=== PATIENT | female | born 1990 ===

== ENCOUNTER 2024-04-29 14:04 | Outpatient (CLI) | payer BC, SELFPAY ==
--- NOTE | 2024-04-29 14:45 | CRLHL7_ITS ---
For Patients: As a result of the Century Cures Act, medical imaging exams and procedure reports are released immediately into your electronic medical record. You may view this report before your referring provider. If you have questions, please contact your health care provider. INDICATION: Left-sided submandibular swelling COMPARISON: None. TECHNIQUE: Focused sonographic evaluation of the reported region of clinical concern was performed at the left submandibular region utilizing carroll-scale and color Doppler imaging techniques. FINDINGS: Focused sonographic evaluation at the vicinity of the left submandibular gland demonstrates: Several abnormally enlarged and abnormally hyperemic lymph nodes measuring up to 1.3 centimeters in the short axis. There are also enlarged lymph nodes associated with the left cervical chain measuring up to at least 1.2 centimeters in the short axis. IMPRESSION: Focused sonographic evaluation at the vicinity of the left submandibular gland demonstrates several abnormally enlarged and abnormally hyperemic lymph nodes measuring up to 1.3 centimeters in the short axis. There are also enlarged lymph nodes associated with the left cervical chain measuring up to at least 1.2 centimeters in the short axis. Consider fine needle aspiration to further assess. Dictated by Vern Banegas MD @ 04/29/2024 3:37:48 PM (Electronically Signed)
== END 2024-04-29 14:05 | disposition home or self-care (01) ==
PROVIDERS: Visit Provider Family Medicine
DX: K11.20 Sialoadenitis, unspecified (principal)
CPT/HCPCS: 76536

== ENCOUNTER 2024-05-06 15:10 | Outpatient (CLI) | payer BC, SELFPAY ==
[2024-05-07 04:48] LABS: Chlamydia DNA Amplified* NOT DETECTED (No Detected); GC DNA Amplified* NOT DETECTED (No Detected)
== END 2024-05-06 15:11 | disposition home or self-care (01) ==
PROVIDERS: PCP Family Medicine; Visit Provider Family Medicine
DX: Z11.3 Encounter for screening for infections with a predominantly sexual mode of transmission (principal)
CPT/HCPCS: 86592; 86703; 87491; 87591

== ENCOUNTER 2024-09-23 13:13 | Outpatient (CLI) | payer BC, SELFPAY | END 2024-09-23 13:14 | disposition home or self-care (01) | PROVIDERS: PCP Family Medicine; Visit Provider Family Medicine | DX: Z13.6 Encounter for screening for cardiovascular disorders (principal); Z13.9 Encounter for screening, unspecified | CPT/HCPCS: 80053; 80061 ==